=== PATIENT | male | born 1970 | race American Indian/Alaskan Native ===

== ENCOUNTER 2017-01-09 00:01 | Emergency (ER) | payer OTHER ==
[2017-01-09] MEDS ORDERED: ZOFRAN ODT PO ONE (00:45)
[2017-01-09] MEDS ORDERED: ZOFRAN ODT ONE (00:45)
[2017-01-09 01:16] LABS: Hemoglobin 14.8 gm/dl (11.8-15.2); Mean Corpuscular HGB Conc 34 % (32-34); Mean Corpuscular Hemoglobin 33 pg (28-32); Mean Corpuscular Volume 98 fl (84-94); Platelet Count 118 K/mm3 (140-440); White Blood Count 5.2 K/mm3 (4.5-11.0)
[2017-01-09 01:26] LABS: Alanine Aminotransferase 83 units/L (7-56); Albumin 3.7 g/dL (3.9-5); Alkaline Phosphatase 62 units/L (35-129); Anion Gap 15 mmol/L; Blood Urea Nitrogen 7 mg/dL (9-20); Calcium 8.6 mg/dL (8.4-10.2); Carbon Dioxide 27 mmol/L (22-30); Chloride 99.4 mmol/L (98-107); Glucose 93 mg/dL (75-100); Lipase 190 units/L (13-60); Potassium 3.6 mmol/L (3.6-5.0); Sodium 138 mmol/L (137-145); Total Protein 7.4 g/dL (6.3-8.2)
[2017-01-09 01:29] LABS: Bilirubin,Urine NEG (Negative); Blood,Urine NEG (Negative); Ketones,Urine NEG (Negative); Leukocyte Esterase,Urine NEG (Negative); Nitrite,Urine NEG (Negative); Protein,Urine <15 mg/dL mg/dL (Negative); Urobilinogen,Urine < 2.0 mg/dL (<2.0)
[2017-01-09 02:29] LABS: Basophils % (Manual) 0 % (0.0-1.8); Blastocytes % (Manual) 0 %
[2017-01-09 02:33] LABS: Diff Status Complete; Giant Platelets Rare; Platelet Estimate Appears Decreased
[2017-01-09] MEDS ORDERED: ZOFRAN PO ONE (03:31)
[2017-01-09] MEDS ORDERED: MORPHINE IV ONE (07:48)
[2017-01-09] MEDS ORDERED: ZOFRAN IV ONE (07:48)
--- NOTE | 2017-01-09 07:51 | Emergency Department Report ---
HPI - General Chief Complaint: Abdominal Pain Time Seen by Provider: 01/09/17 07:42 - HPI HPI: This is a 46-year-old male who presents to the emergency department by EMS from home with complaint of a 5-6 day history of upper abdominal pain with some radiation towards his back. Associated with some nausea and vomiting that worsened last night. He says he vomited up some yellowish secretions and there was some blood in it as well. He denies any fever, dysuria, penile discharge, rectal pain or bleeding. He has not taken anything for his symptoms prior to presentation. Patient has a history of HIV and says that the symptoms began when he switched his HIV medications from Truvada to Descovy. He goes to [facility] for his primary care needs but apparently also sees a separate HIV physician, Dr. mason. No recent travel or sick contacts at home. ED Past Medical Hx - Past Medical History Previous Medical History?: Yes Hx HIV: Yes - Surgical History Past Surgical History?: No - Social History Smoking Status: Never Smoker - Medications Home Medications: Home Medications Medication Instructions Recorded Confirmed Last Taken Type Sulfamethoxazole/Trimethoprim 1 each PO BID #20 tablet 06/26/16 Unknown Rx [Bactrim DS TAB] HYDROcodone/APAP 5-325 [[place] 1 each PO Q6HR PRN #10 tablet 01/09/17 Unknown Rx 5-325 mg TAB] Ondansetron [Zofran Odt] 4 mg PO Q8H PRN #10 tab.rapdis 01/09/17 Unknown Rx ED Review of Systems ROS: Stated complaint: ABDOMINAL PAIN Other details as noted in HPI Comment: All other systems reviewed and negative Constitutional: denies: chills, fever Eyes: denies: eye pain, eye discharge, vision change ENT: denies: ear pain, throat pain Respiratory: denies: cough, shortness of breath, wheezing Cardiovascular: denies: chest pain, palpitations Gastrointestinal: abdominal pain, nausea, vomiting, hematemesis Genitourinary: denies: urgency, dysuria Musculoskeletal: denies: back pain, joint swelling, arthralgia Skin: denies: rash, lesions Neurological: denies: headache, weakness, paresthesias Physical Exam - Physical Exam Vital Signs: Vital Signs 01/09/17 00:40 Temperature 98.5 F Pulse Rate 64 Respiratory 18 Rate Blood Pressure 150/109 [Left] O2 Sat by Pulse 100 Oximetry Physical Exam: GENERAL: The patient is well-developed well-nourished. HEENT: Normocephalic. Atraumatic. Extraocular motions are intact. Patient has moist mucous membranes. Pupils equal reactive to light bilaterally. NECK: Supple. Trachea is midline. CHEST/LUNGS: Clear to auscultation. There is no respiratory distress noted. HEART/CARDIOVASCULAR: Regular. There is no tachycardia. There is no gallop rub or murmur. ABDOMEN: Abdomen is soft. Generalized tenderness to palpation of the abdomen, worse in the upper quadrants. There is some mild guarding but no rebound tenderness. No peritoneal signs with heel strike. Patient has normal bowel sounds. There is no abdominal distention. SKIN: Skin is warm and dry. NEURO: The patient is awake, alert, and oriented. The patient is cooperative. The patient has no focal neurologic deficits. The patient has normal speech. MUSCULOSKELETAL: There is no tenderness or deformity. There is no limitation range of motion. There is no evidence of acute injury. ED Course Vital Signs 01/09/17 00:40 Temperature 98.5 F Pulse Rate 64 Respiratory 18 Rate Blood Pressure 150/109 [Left] O2 Sat by Pulse 100 Oximetry ED Medical Decision Making - Lab Data Result diagrams: 01/09/17 00:41 01/09/17 00:41 - Radiology Data Radiology results: report reviewed CT scan of abdomen and pelvis with IV contrast: History: Abdominal pain. Findings: Normal lung bases. No pleural or pericardial effusion. Normal liver spleen pancreas gallbladder. Normal adrenals and kidney parenchyma and bladder. No free intraperitoneal fluid or air. No evidence of adenopathy. Gaseous colon with moderate volume stool in colon. No evidence of appendicitis or diverticulitis. Impression: Gaseous colon with moderate volume stool in colon. Transcribed By: PTP Dictated By: KARLY WANG MD Electronically Authenticated By: KARLY WANG MD Signed Date/Time: 01/09/17921 - Medical Decision Making This is a 46-year-old male presents to the emergency department with a 5-60 history of some abdominal discomfort, nausea and vomiting. Patient's labs show elevation in his LFTs about double the normal range and an elevation of his lipase. He was given some nausea medication and pain medication and upon reevaluation he appears more comfortable. A CT of his abdomen and pelvis was done due to generalized tenderness to palpation of the abdomen but it resulted as no acute process seen. His symptoms may be secondary to recent change in his HIV medications or may be some type of nonspecific viral syndrome. However the patient appears safe for discharge home at this time. He has been able to keep down some fluid. Vital signs stable throughout his ED course. He has been encouraged to follow up with his primary care physician and infectious disease doctor and he was given a referral for gastroenterology. He will return to the ER with any worsening of symptoms or any acute distress. - Differential Diagnosis hepatitis, cholelithiasis, pancreatitis, nephrolithiasis, food poisoning, v Critical Care Time: No Critical care attestation.: If time is entered above; I have spent that time in minutes in the direct care of this critically ill patient, excluding procedure time. ED Disposition Clinical Impression: Elevated LFTs Abdominal pain Qualifiers: Abdominal location: generalized Qualified Code(s): R10.84 - Generalized abdominal pain Nausea & vomiting Qualifiers: Vomiting type: unspecified Vomiting Intractability: non-intractable Qualified Code(s): R11.2 - Nausea with vomiting, unspecified Disposition: DISCHARGED TO HOME OR SELFCARE Is pt being admited?: No Condition: Stable Instructions: Acute Nausea and Vomiting (ED), Abdominal Pain (ED) Additional Instructions: Please follow-up with your primary care physician and infectious disease doctor I have given you a referral for a local tone regulator, Dr. Rice, to follow-up regarding your elevated liver function tests labs. Return to the emergency department with any worsening of your symptoms or any acute distress. You've been prescribed a medication that is sedating. Therefore this medication cannot be mixed with alcohol, or taken prior to driving, working, or being responsible for children. Prescriptions: HYDROcodone/APAP 5-325 [[place] 5-325 mg TAB] 1 each PO Q6HR PRN #10 tablet PRN Reason: Pain Ondansetron [Zofran Odt] 4 mg PO Q8H PRN #10 tab.rapdis PRN Reason: Nausea Referrals: PRIMARY CAREMD [Primary Care Provider] - 3-5 Days SUDHEER RICE MD [Staff Physician] - 3-5 Days Forms: Work/School Release Form(ED) Time of Disposition: 09:58
[2017-01-09] MEDS ORDERED: NACL ONE (07:57)
[2017-01-09 09:16] VITALS: BP 134/101
--- NOTE | 2017-01-09 09:27 | Cat Scan Report ---
CT scan of abdomen and pelvis with IV contrast: History: Abdominal pain. Findings: Normal lung bases. No pleural or pericardial effusion. Normal liver spleen pancreas gallbladder. Normal adrenals and kidney parenchyma and bladder. No free intraperitoneal fluid or air. No evidence of adenopathy. Gaseous colon with moderate volume stool in colon. No evidence of appendicitis or diverticulitis. Impression: Gaseous colon with moderate volume stool in colon.
== END 2017-01-09 10:18 | disposition home or self-care (01) ==
LOC: ED 00:01
DX: R94.5 Abnormal results of liver function studies (principal); R10.84 Generalized abdominal pain; R11.2 Nausea with vomiting, unspecified
CPT/HCPCS: 36415; 74177; 80053; 81001; 83690; 85007; 85025; 96374; 96375; 99284; J2270; J2405; Q9967; Q0162